=== PATIENT | female | born 1980 | race Caucasian/White ===

== ENCOUNTER → 2016-05-17 | Outpatient (REF) | payer OTHER ==
[2016-05-17 14:14] LABS: REASON FOR REVIEW COMPREHENSIVE REVIEW
[2016-05-17 15:04] LABS: VITAMIN B12 LEVEL 558 PG/ML (247-911)
[2016-05-17 15:05] LABS: FERRITIN 6 NG/ML (8-252); TOTAL IRON BINDING CAPACITY 494 UG/DL (250-450); TOTAL PROTEIN 6.3 GM/DL (6.4-8.2)
[2016-05-18 10:35] LABS: ALBUMIN 4.12 GM/DL (3.29-5.55); ALBUMIN % 65.4 % (55.8-66.1); GAMMA GLOBULIN % 8.3 % (11.1-18.8)
== END ==
LOC: M LAB REF 12:35
PROVIDERS: ATTEND Internal Medicine Medical Oncology
DX: D64.9 Anemia, unspecified (principal)